=== PATIENT | female | born 1980 | race Caucasian/White ===

== ENCOUNTER 2017-09-16 08:52 | Outpatient (CLI) | payer MEDICAID | END 2017-09-16 23:59 | disposition home or self-care (01) | LOC: RAD 08:52 | PROVIDERS: ATTEND Nurse Practitioner Family | DX: N83.202 Unspecified ovarian cyst, left side (principal) | CPT/HCPCS: 76856 ==

== ENCOUNTER 2019-06-26 06:59 | Day surgery (SDC) | payer MEDICAID ==
[2019-06-22 10:39] LABS: BASOPHILS % (AUTO) 0.4 % (0-1); EOSINOPHILS # (AUTO) 0.2 X10'3 (0-0.9); EOSINOPHILS % (AUTO) 3.2 % (0-6); LYMPHOCYTES # (AUTO) 1.9 X10'3 (1.1-4.8); MEAN CORPUSCULAR HEMOGLOBIN 30.8 PG (27.0-31.0); MEAN CORPUSCULAR HGB CONC 33.7 g/dL (33.0-36.5); MEAN CORPUSCULAR VOLUME 91.5 FL (78-98); MEAN PLATELET VOLUME 11.4 FL (7.4-10.4); MONOCYTES # (AUTO) 0.4 X10'3 (0-0.9); MONOCYTES % (AUTO) 6.9 % (2-12); NEUTROPHILS % (AUTO) 54.5 % (42-75); PRE OP HEMATOCRIT 38.3 % (35.0-45.0); PRE OP HEMOGLOBIN 12.9 g/dL (12.0-16.0); PRE OP PLATELET COUNT 119 X10'3 (140-440); RED BLOOD COUNT 4.19 X10'6 (4.20-5.60); RED CELL DISTRIBUTION WIDTH 12.4 % (11.5-14.5)
[2019-06-22 11:05] LABS: ALBUMIN 3.7 G/DL (3.4-5.0); ALBUMIN/GLOBULIN RATIO 1.1 (1.1-1.5); ALKALINE PHOSPHATASE 60 IU/L (46-116); BLOOD UREA NITROGEN 11 MG/DL (7-18); BUN/CREATININE RATIO 11.5 (6.6-38.0); CALCIUM 9.1 MG/DL (8.5-10.1); CHLORIDE 103 MMOL/L (99-107); CREATININE 0.96 MG/DL (0.40-0.90); PRE OP ALT 32 U/L (30-65); PRE OP ANION GAP 9 (8-16); PRE OP AST 28 U/L (10-37); PRE OP BILIRUB, TOTAL 0.2 MG/DL (0.0-1.0); PRE OP GLUCOSE 98 MG/DL (70-104); PRE OP POTASSIUM 3.7 MMOL/L (3.4-5.1); PRE OP SODIUM 140 MMOL/L (135-145); TOTAL CARBON DIOXIDE 28.4 MMOL/L (24-32); TOTAL PROTEIN 7.2 G/DL (6.4-8.2); eGFR 64 ML/MIN
[2019-06-22 11:12] LABS: HCG SERUM QL NEGATIVE
[2019-06-26] VITALS (7 sets, daily range): BP systolic 126–151; BP diastolic 93–99
[~2019-06-26] VITALS: Ht 167.6 cm; Wt 85.6 kg
[~2019-06-26 06:59] MED LIST: CETI-102 PO; MAGN400C PO; MULT-955 PO; NORG1TAB80 PO; [UNRECOGNIZED DRUG - OTHER] PO; famotidine 20mg tablet PO ONE; ringers solution, lacted 1,000 ML IV SCH
[2019-06-26] MEDS ORDERED: ringers solution, lacted 1,000 ML IV SCH (07:20)
[2019-06-26] MEDS ORDERED: ondansetron/PF 4mg/2ml inj IV PRN (07:20)
[2019-06-26] MEDS ORDERED: proCHLORperazine 10 MG/2 ml inj IV PRN (07:20)
[2019-06-26] MEDS ORDERED: meperidine/PF 25mg/ml syringe IV PRN ×3 (07:20)
[2019-06-26] MEDS ORDERED: morphine 4 MG/ML inj SYRINge IV PRN ×2 (07:20)
[2019-06-26] MEDS ORDERED: sevoflurane 250ml liquid IH ONE (09:00)
[2019-06-26] MEDS ORDERED: midazolam 2 mg/2 ml injection ONE (09:16)
[2019-06-26] MEDS ORDERED: fentaNYL/PF 50MCG/1 ML 2ML syringe ONE (09:16)
[2019-06-26] MEDS ORDERED: ondansetron/PF 4mg/2ml inj ONE (09:39)
[2019-06-26] MEDS ORDERED: LIDOcaine 2% (20mg/ml) 5ml vial ONE (09:39)
[2019-06-26] MEDS ORDERED: neostigmine methylsulfate 1 MG/ML 10ml vial ONE (09:39)
[2019-06-26] MEDS ORDERED: propofol inj 20 ML IV ONE (09:39)
[2019-06-26] MEDS ORDERED: dexamethasone sod phosphate 4mg/ml inj. ONE (09:39)
[2019-06-26] MEDS ORDERED: glycopyrrolate 0.2mg/ml inj ONE (09:39)
[2019-06-26] MEDS ORDERED: rocuronium 10mg/ml inj IV ONE (09:39)
--- NOTE | 2019-06-26 09:59 | NUR ---
Received from OR via [facility], accompanied by Anesthesiologist Sybil and report given by Anesthesiolgist. All VS stable, 10L O2 mask sats 100%. Pt alert and responsive pain tolerable at 3/10. Pt has bandaid x1 to abdomen CDI, jaiden pad very scant drainage. HANEY and has 20G IV LR at 100cc/hr.
[2019-06-26] MEDS ORDERED: traMADol 50MG tablet PO ONE (11:00)
--- NOTE | 2019-06-26 11:19 | NUR ---
Pt discharged to vehicle by wheelchair without incident. Pt alert and oriented, present. IV DC'd. Bandaid remains CDI, clean jaiden pad given to patient to wear, back in her own clothing and all belongings returned to patient. Prescriptions called in to pharmacy of their choice. Both verbalized understanding of discharge instructions.
== END 2019-06-26 11:19 | disposition home or self-care (01) ==
LOC: PAS 06:59
PROVIDERS: ATTEND Obstetrics & Gynecology
DX: Z30.2 Encounter for sterilization (principal); E66.9 Obesity, unspecified; Z68.30 Body mass index [BMI] 30.0-30.9, adult; Z98.890 Other specified postprocedural states; Z88.1 Allergy status to other antibiotic agents; Z79.899 Other long term (current) drug therapy; Z72.89 Other problems related to lifestyle
CPT/HCPCS: 36415; 58670; 80053; 82948; 84703; 85025; J1100; J2001; J2175; J2250; J2405; J2704; J2710; J3010; J7120; A4618; A7000; J3490